=== PATIENT | male | born 1965 | race African-American/Black ===

== ENCOUNTER 2016-07-01 06:05 | Emergency (ER) | payer OTHER ==
[2016-07-01 06:24] VITALS: TEMP 98.2
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
[2016-07-01 09:38] VITALS: BP 178/99; PULSE 72; RESP 16; O2SAT 97
== END 2016-07-01 09:37 | disposition home or self-care (01) ==
LOC: EDUNIT#
DX: S06.0X0A Concussion without loss of consciousness, initial encounter (principal); I10 Essential (primary) hypertension; V47.5XXA Car driver injured in collision with fixed or stationary object in traffic accident, initial encounter; Y92.410 Unspecified street and highway as the place of occurrence of the external cause; Y93.89 Activity, other specified

== ENCOUNTER → 2016-07-20 | Outpatient (CLI) | payer OTHER | LOC: BRMIMAGING 10:11 | PROVIDERS: ATTEND Internal Medicine | DX: R05 Cough (principal); V47.5XXD Car driver injured in collision with fixed or stationary object in traffic accident, subsequent encounter | CPT/HCPCS: 71020-PO ==

== ENCOUNTER → 2016-08-16 | Outpatient (CLI) | payer OTHER | LOC: BRMIMAGING 13:50 | PROVIDERS: ATTEND Internal Medicine | DX: M47.896 Other spondylosis, lumbar region (principal); M47.897 Other spondylosis, lumbosacral region | CPT/HCPCS: 72100-PO ==

== ENCOUNTER → 2016-11-30 | Outpatient (CLI) | payer OTHER | LOC: BRMIMAGING 10:13 | PROVIDERS: ATTEND Internal Medicine | DX: M25.511 Pain in right shoulder (principal); R20.2 Paresthesia of skin; V89.9XXS Person injured in unspecified vehicle accident, sequela | CPT/HCPCS: 72052-PO ==